=== PATIENT | male | born 1960 | race Asian ===

== ENCOUNTER 2020-11-13 11:13 | Emergency (ER) | payer MEDICARE ==
[2020-11-13 11:27] VITALS: BP 115/78
[2020-11-13] MEDS ORDERED: HYDROcodone/ACETAMINOPHEN 5-325 MG TAB PO ONE (11:39)
[2020-11-13] MEDS ORDERED: IBUPROFEN 800 MG TAB PO STA (11:39)
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
--- NOTE | 2020-11-13 12:15 | XRay Report ---
Left knee radiograph, 3 views HISTORY: Pain COMPARISON: None FINDINGS: No acute fracture or malalignment. Mild tricompartmental osteoarthritis. There is nonspecif ic moderate knee joint effusion and soft tissue swelling of the medial knee. Signer Name: Levi Camargo MD Signed: 11/13/2020 12:10 PM Workstation Name: [id number]
== END 2020-11-13 13:15 | disposition home or self-care (01) ==
LOC: ED 11:13
DX: S89.92XA Unspecified injury of left lower leg, initial encounter (principal); F17.200 Nicotine dependence, unspecified, uncomplicated; Z79.899 Other long term (current) drug therapy; V19.9XXA Pedal cyclist (driver) (passenger) injured in unspecified traffic accident, initial encounter; Y93.89 Activity, other specified; Y92.89 Other specified places as the place of occurrence of the external cause; Y99.8 Other external cause status